=== PATIENT | female | born 1965 | race Caucasian/White ===

== ENCOUNTER → 2017-11-19 | Day surgery (SDC) | payer OTHER ==
[~2017-11-19] VITALS: Ht 162.6 cm; Wt 54.4 kg
[2017-11-19 07:05] LABS: ABSOLUTE BASOPHIL COUNT 0 /CUMM (0.0-0.2); ABSOLUTE EOSINOPHIL COUNT 0.1 /CUMM (0.0-0.7); ABSOLUTE GRANULOCYTE CT 2.3 /CUMM (1.4-6.5); ABSOLUTE LYMPH COUNT 2.3 /CUMM (1.2-3.4); ABSOLUTE MONOCYTE COUNT 0.5 /CUMM (0.10-0.60); BASOPHIL % 0.9 % (0.0-2.0); EOSINOPHIL % 2.2 % (0-5); GRANULOCYTE % 44.2 % (42.2-75.2); HEMATOCRIT 40.3 % (37-47); MEAN CORPUSCULAR HGB CONC 32.4 G/DL (33.0-37.0); MEAN CORPUSCULAR VOLUME 95.8 FL (81.0-99.0); PLATELET COUNT 336 /CUMM (130-400); RBC DISTRIBUTION WIDTH 13.1 % (11.5-14.5); RED BLOOD CELL CT 4.21 /CUMM (4.20-5.40); WHITE BLOOD CELL COUNT 5.3 /CUMM (4.8-10.8)
--- NOTE | 2017-11-19 12:05 | Operative Report ---
See Addendum Operative/Inv Procedure Report Surgery Date: 11/19/17 Name of Procedure: Breast reduction Pre-Operative Diagnosis: macromastia Post-Operative Diagnosis: Same Estimated Blood Loss: scant (200) Surgeon/[place] Operator: Lopez Castellanos MD Anesthesia: general endotracheal tube Operative/Procedure Note Note: She was counseled regards the procedure the alternatives risks and expected outcomes as relates to request for surgical intervention to treat symptomatic macromastia. asPS informed consents which she has returned sign. She has no questions regarding them today. I specifically discussed further weight loss in the future might result in breasts are too small for her liking as well as no given cup size. She was marked in the standing position for an inferior pedicle Powell pattern technique. She signed informed consent. She was taken to the operating room placed supine on the table. Venodyne boots are placed general anesthesia was given and intravenous antibiotics administered. Chest was prepped and draped in usual sterile fashion. The inferior pedicle was de- epithelialized and segments were removed superiorly medially and laterally. This was done bilaterally and the patient was put in the sitting position after temporary closure to mary lou the nipple position. 3 layer closure was carried out of all incisions. Ends dictation
--- NOTE | 2017-11-19 12:10 | Operative Report ---
Operative/Inv Procedure Report Surgery Date: 11/19/17 Name of Procedure: Excision basal cell carcinoma medial canthus,6mm complex closure 1.5 cm, comp curettage and desiccation right palm lesion, excision full-thickness intraoral mucosal lesion Pre-Operative Diagnosis: Symptomatically lesion right palm, basal cell carcinoma right medial canthus, intraoral symptomatic lesion Post-Operative Diagnosis: same Estimated Blood Loss: scant Surgeon/Gi Asst: Emanuel MOORE,Lopez Sherman Anesthesia: moderate sedation, block Operative/Procedure Note Note: Patient was counseled in regards the procedure the alternatives risks and expected outcomes as relates to request for surgical intervention to treat a basal cell carcinoma the right medial canthus. She was given others treatment options and is chosen surgical. We talked about definite visible permanent scarring possibly unsightly or symptomatic, the need for additional surgery based on final pathology. scars will be permanent invisible. She has a symptomatic lesion of the right palm consistent with a wart that is increasing in size. She has an intraoral lesion on the right side that'll be excised for biopsy. Consent was signed. She was taken to the operating room placed supine on the table Venodyne boots are placed and then intravenous sedation and antibiotics were given. Local injection was carried out intraorally and a full- thickness excision around the lesion of the right buccal mucosa was carried out. Simple closure was performed. Then she was then turned after prep and drape of the face and right hand excision of the 6 mm area consistent with a previous biopsy showing basal cell carcinoma. Frozen section analysis shows no residual tumor extensive undermining was done in all directions with a 2 layer closure for tension-free closing for the dimensions described above. Curettage and desiccation was carried out of the 4 mm lesion of the right palm. Sterile dressings placed throughout. Ends dictation
== END ==
LOC: STS 03:42
PROVIDERS: Surgery Plastic and Reconstructive Surgery
DX: K13.79 Other lesions of oral mucosa (principal); C44.112 Basal cell carcinoma of skin of right eyelid, including canthus; L98.8 Other specified disorders of the skin and subcutaneous tissue; G35 Multiple sclerosis; Z87.891 Personal history of nicotine dependence
CPT/HCPCS: 36415; 93005; 93010; J0690; J2250